=== PATIENT | male | born 1975 | race Caucasian/White ===

== ENCOUNTER 2017-02-28 11:13 | Emergency (ER) | payer SELFPAY ==
[~2017-02-28] VITALS: Ht 185.4 cm; Wt 98.4 kg
[~2017-02-28 11:13] MED LIST: AMOXICILLIN500 MG PO; AMOXIL500 MG PO; ANAPROX DS550 MG PO; ATARAX25 MG PO; BACTRIM DS 8001 TA1 PO; COMPAZINE10 MG PO; Elimite 5%60 GM T; FLEXERIL5 MG PO; KEFLEX500 MG PO; LIDEX0.05% T; MOTRIN800 MG PO; NKHM; PEN-VEE K500 MG PO; PREDNICOT20 MG PO; ROBITUSSIN DM120 ML PO; TESSALON PERLE100 M1 PO; TESSALON PERLE200 MG PO; TYLENOL W/CODEI1 TA2 PO; VIBRAMYCIN100 MG PO; ZITHROMAX Z PA250 MG PO; ZOFRAN ODT4 MG PO; ZOFRAN ODT4 MG SL
[2017-02-28] MEDS ORDERED: PREDNISONE10 MG PO (11:35)
== END 2017-02-28 11:41 | disposition home or self-care (01) ==
LOC: ED 11:13
DX: L23.7 Allergic contact dermatitis due to plants, except food (principal); Z87.891 Personal history of nicotine dependence

== ENCOUNTER 2017-05-06 16:29 | Emergency (ER) | payer SELFPAY ==
[~2017-05-06] VITALS: Ht 185.4 cm; Wt 95.3 kg
[~2017-05-06 16:29] MED LIST changes: +PREDNISONE10 MG PO
[2017-05-06] MEDS ORDERED: PREDNISONE10 MG PO (16:41)
== END 2017-05-06 16:52 | disposition home or self-care (01) ==
LOC: ED 16:29
DX: L30.9 Dermatitis, unspecified (principal); R03.0 Elevated blood-pressure reading, without diagnosis of hypertension; Z87.891 Personal history of nicotine dependence

== ENCOUNTER 2017-07-17 15:03 | Emergency (ER) | payer SELFPAY ==
[~2017-07-17] VITALS: Wt 95.3 kg
== END 2017-07-17 15:40 | disposition home or self-care (01) ==
LOC: ED 15:03
DX: A08.4 Viral intestinal infection, unspecified (principal); Z87.891 Personal history of nicotine dependence

== ENCOUNTER 2019-07-07 19:09 | Emergency (ER) | payer SELFPAY ==
[~2019-07-07] VITALS: Wt 90.7 kg
== END 2019-07-07 21:00 | disposition home or self-care (01) ==
LOC: ED 19:09
DX: M25.461 Effusion, right knee (principal); F17.200 Nicotine dependence, unspecified, uncomplicated

== ENCOUNTER 2020-03-12 17:04 | Emergency (ER) | payer SELFPAY ==
[2020-03-13] MEDS ORDERED: ZOFRAN4 MG PO (23:15)
== END 2020-03-12 17:37 | disposition left against medical advice (07) ==
LOC: ED 17:04
DX: Z00.00 Encounter for general adult medical examination without abnormal findings (principal); Z53.21 Procedure and treatment not carried out due to patient leaving prior to being seen by health care provider

== ENCOUNTER 2020-03-13 23:03 | Emergency (ER) | payer SELFPAY ==
[~2020-03-13] VITALS: Ht 185.4 cm; Wt 108.9 kg
[2020-03-13] MEDS ORDERED: ZOFRAN4 MG PO (23:15)
== END 2020-03-13 23:28 | disposition home or self-care (01) ==
LOC: ED 23:03
DX: A08.4 Viral intestinal infection, unspecified (principal); R56.9 Unspecified convulsions; Z79.899 Other long term (current) drug therapy

== ENCOUNTER 2021-08-06 17:05 | Emergency (ER) | payer OTHER ==
[~2021-08-06] VITALS: Ht 185.4 cm; Wt 110.2 kg
[~2021-08-06 17:05] MED LIST changes: +ZOFRAN4 MG PO
[2021-08-06 17:55] LABS: BASO # 0.1 10*3/uL (0.0-0.1); BASO % 0.7 % (0.0-1.0); EOS # 0.2 10*3/uL (0.0-0.4); EOS % 2.1 % (1.0-4.0); HEMATOCRIT 45.5 % (42.0-52.0); LYMPH # 1.9 10*3/uL (1.3-4.4); LYMPH % 25.1 % (27.0-41.0); MEAN CELL VOLUME 98.7 fl (80.0-94.0); MEAN CORPUSCULAR HGB 32.1 pg (27.0-31.0); MEAN CORPUSCULAR HGB CONC 32.5 g/dl (33.0-37.0); MONO # 0.5 10*3/uL (0.1-1.0); MONO % 7.1 % (3.0-9.0); NEUT # 4.9 10*3/uL (2.3-7.9); NEUT % 64.7 % (47.0-73.0); PLATELET COUNT AUTOMATED 270 10*3/uL (130-400); RED BLOOD COUNT 4.61 10*6/uL (4.50-5.90); RED CELL DISTRI WIDTH 12.1 % (0-14.5); WHITE BLOOD COUNT 7.5 10*3/uL (4.8-10.8)
[2021-08-06 18:18] LABS: ALBUMIN 3.4 gm/dl (3.1-4.5); ALKALINE PHOSPHATASE 35 U/L (45-117); BUN 14 mg/dl (7-24); CHLORIDE 109 mmol/L (98-107); CREATININE 1.35 mg/dL (0.70-1.30); LIPASE 88 U/L (73-393); POTASSIUM 4.2 mmol/L (3.5-5.1); SGOT/AST 17 IU/L (3-35); SGPT/ALT 29 U/L (12-78); SODIUM 139 mmol/L (136-145); TOTAL PROTEIN 7.1 gm/dL (6.4-8.2)
[2021-08-06 18:23] LABS: BILIRUBIN Negative (Negative); BLOOD Negative (Negative); CLARITY Clear (Clear); COLOR Yellow (Yellow); GLUCOSE Negative (Negative); KETONE Trace (Negative); LEUKO ESTERASE Negative (Negative); NITRITE Negative (Negative); PH 5.5 (4.5-8.0); SPECIFIC GRAVITY >= 1.030 (1.001-1.030)
[2021-08-06 18:35] LABS: BACTERIA TRACE; EPITHELIAL CELLS 0-2; MUCOUS 2+; RBC 0-2 rbc/hpf (0-2); WBC 0-2 wbc/hpf (0-5)
== END 2021-08-06 20:54 | disposition home or self-care (01) ==
LOC: ED 17:05
PROVIDERS: Physician Assistant
DX: R10.32 Left lower quadrant pain (principal); Z87.891 Personal history of nicotine dependence

== ENCOUNTER 2022-01-12 19:08 | Emergency (ER) | payer OTHER ==
[~2022-01-12] VITALS: Ht 185.4 cm; Wt 108.9 kg
== END 2022-01-12 21:58 ==
LOC: ED 19:08
DX: R51.9 Headache, unspecified (principal); R06.02 Shortness of breath; Z87.891 Personal history of nicotine dependence

== ENCOUNTER 2022-02-10 14:04 | Emergency (ER) | payer OTHER ==
[~2022-02-10] VITALS: Wt 108.9 kg
[2022-02-10 15:58] LABS: BASO % 0.2 % (0.0-1.0); LYMPH # 0.7 10*3/uL (1.3-4.4); MEAN CELL VOLUME 96.5 fl (80.0-94.0); MEAN CORPUSCULAR HGB 32.4 pg (27.0-31.0); MEAN CORPUSCULAR HGB CONC 33.6 g/dl (33.0-37.0); MONO # 0.5 10*3/uL (0.1-1.0); MONO % 5.9 % (3.0-9.0); NEUT # 7.1 10*3/uL (2.3-7.9); NEUT % 85.5 % (47.0-73.0); PLATELET COUNT AUTOMATED 244 10*3/uL (130-400); RED BLOOD COUNT 4.87 10*6/uL (4.50-5.90); RED CELL DISTRI WIDTH 11.9 % (0-14.5); WHITE BLOOD COUNT 8.3 10*3/uL (4.8-10.8)
[2022-02-10 16:17] LABS: ALKALINE PHOSPHATASE 42 U/L (45-117); BUN 11 mg/dl (7-24); CHLORIDE 105 mmol/L (98-107); CREATININE 1.43 mg/dL (0.70-1.30); LIPASE 65 U/L (73-393); POTASSIUM 3.8 mmol/L (3.5-5.1); SGOT/AST 12 IU/L (3-35); SGPT/ALT 27 U/L (12-78); SODIUM 136 mmol/L (136-145); TOTAL PROTEIN 7.9 gm/dL (6.4-8.2)
[2022-02-10 16:17] LABS: BILIRUBIN Negative (Negative); BLOOD Negative (Negative); CLARITY Clear (Clear); COLOR Yellow (Yellow); GLUCOSE Negative (Negative); KETONE Trace (Negative); LEUKO ESTERASE Negative (Negative); NITRITE Negative (Negative); PH 5.5 (4.5-8.0); SPECIFIC GRAVITY >= 1.030 (1.001-1.030)
[2022-02-10 16:29] LABS: BACTERIA 1+; EPITHELIAL CELLS 0-2; MUCOUS 2+
== END 2022-02-10 18:35 | disposition home or self-care (01) ==
LOC: ED 14:04
PROVIDERS: Emergency Medicine
DX: K52.9 Noninfective gastroenteritis and colitis, unspecified (principal); E86.0 Dehydration

== ENCOUNTER 2023-11-16 08:11 | Emergency (ER) | payer OTHER, MEDICAID ==
[~2023-11-16] VITALS: Ht 185.4 cm; Wt 108.9 kg
[2023-11-16] MEDS ORDERED: AMOX-CLAV 875-1 EACH PO (09:02)
[2023-11-16] MEDS ORDERED: Amoxicillin/Clavulanate Pota 875 MG TAB PO ONE (09:05)
== END 2023-11-16 09:24 | disposition home or self-care (01) ==
LOC: ED 08:11
DX: K04.7 Periapical abscess without sinus (principal); K08.89 Other specified disorders of teeth and supporting structures; F17.210 Nicotine dependence, cigarettes, uncomplicated

== ENCOUNTER 2025-01-08 18:54 | Emergency (ER) | payer OTHER ==
[~2025-01-08] VITALS: Ht 185.4 cm; Wt 108.9 kg
[~2025-01-08 18:54] MED LIST changes: +AMOX-CLAV 875-1 EACH PO
[2025-01-08] MEDS ORDERED: Motrin,Rufen800 MG PO (21:28)
== END 2025-01-08 21:22 | disposition home or self-care (01) ==
LOC: ED 18:54
DX: S46.911A Strain of unspecified muscle, fascia and tendon at shoulder and upper arm level, right arm, initial encounter (principal); S29.012A Strain of muscle and tendon of back wall of thorax, initial encounter; Z79.899 Other long term (current) drug therapy; V43.62XA Car passenger injured in collision with other type car in traffic accident, initial encounter; Y93.89 Activity, other specified; Y92.488 Other paved roadways as the place of occurrence of the external cause; Y99.8 Other external cause status